=== PATIENT | female | born 1955 | race Caucasian/White ===

== ENCOUNTER → 2017-12-01 | Outpatient (CLI) | payer OTHER ==
[~2017-12-01] MED LIST: Aspir-Trin325 MG; CALCAVITD; CHOL10002; Daily Multiple1 EACH; IBUP800; LEVSOD75; LIOT25; PROG100; Sudogest30 MG; TURMERIC500 MG; Vivelle-Dot1 EAC1
== END | disposition home or self-care (01) ==
LOC: LAB SHORT 16:51 → OLS 16:51
DX: N89.8 Other specified noninflammatory disorders of vagina (principal)
CPT/HCPCS: 87070; 87205

== ENCOUNTER → 2018-01-27 | Outpatient (CLI) | payer OTHER | LOC: OLS 17:09 → LAB SHORT 17:09 | PROVIDERS: Obstetrics & Gynecology Gynecology | DX: Z12.4 Encounter for screening for malignant neoplasm of cervix (principal) | CPT/HCPCS: 87624; G0123 ==

== ENCOUNTER → 2018-02-10 | Outpatient (CLI) | payer OTHER | LOC: LAB SHORT 07:29 → PLD 07:29 | DX: N95.0 Postmenopausal bleeding (principal) | CPT/HCPCS: 88305 ==

== ENCOUNTER → 2018-09-27 | Outpatient (CLI) | payer OTHER ==
[~2018-09-27] MED LIST changes: +ASPI325EC PO; +ESTRADIOL1 EAC2 TD; +IBUP800 PO; +LIOT50 PO; +Multivitamin1 EAC1 PO; +PROG100 PO; +Super Calcium600 MG PO; +Synthroid88 MCG PO; +VITAMIN D31000 UNIT PO
[2018-09-27 19:37] LABS: Free Thyroxine 0.88 ng/dL (0.70-1.60)
[2018-09-27 19:39] LABS: Thyroid Stimulating Hormone <0.005 uIU/mL (0.360-4.800); Triiodothyronine, Free 4.39 pg/mL (2.18-3.98)
== END ==
LOC: LAB 17:18 → LAB SHORT 17:18
PROVIDERS: Hospitalist
DX: E03.9 Hypothyroidism, unspecified (principal); R30.0 Dysuria
CPT/HCPCS: 84439; 84443; 84481; 87077; 87086; 87186

== ENCOUNTER → 2019-03-23 | Outpatient (CLI) | payer OTHER ==
[~2019-03-23] MED LIST changes: +LIOT25 PO
[2019-03-25 15:07] LABS: HPV 16 Negative (Negative); HPV 18 Negative (Negative); HPV OTHER HR TYPES Negative (Negative)
== END | disposition home or self-care (01) ==
LOC: LAB SHORT 17:26 → LAB 17:26
PROVIDERS: Obstetrics & Gynecology Gynecology
DX: Z91.89 Other specified personal risk factors, not elsewhere classified (principal)
CPT/HCPCS: 87624; G0123

== ENCOUNTER 2019-04-12 13:41 | Day surgery (SDC) | payer OTHER ==
[~2019-04-12] VITALS: Ht 157.5 cm; Wt 44.9 kg
[~2019-04-12 13:41] MED LIST changes: -LIOT25 PO
--- NOTE | 2019-04-12 16:27 | NUR ---
04/12/19 1627 Alexandra Franklin PT STATES NO PAIN, JUST A LITTLE CRAMPING.
--- NOTE | 2019-04-12 16:49 | NUR ---
04/12/19 1649 Ann Bojorquez DEFICIT REPORTED BY MACHINE TO BE 330
[2019-05-10] MEDS ORDERED: LIOT25 PO (08:02)
== END 2019-04-12 16:50 | disposition home or self-care (01) ==
LOC: ORSCSDS 13:41
PROVIDERS: Obstetrics & Gynecology Gynecology
PROC: 0UDB8ZX Extraction of Endometrium, Via Natural or Artificial Opening Endoscopic, Diagnostic (ICD-10-PCS; principal; 2019-04-12 14:45)
PROC: 0UB98ZX Excision of Uterus, Via Natural or Artificial Opening Endoscopic, Diagnostic (ICD-10-PCS; principal; 2019-04-12 14:45)
DX: N95.0 Postmenopausal bleeding (principal); N84.0 Polyp of corpus uteri; E03.9 Hypothyroidism, unspecified; Z79.899 Other long term (current) drug therapy
CPT/HCPCS: 88305; J0690; J1100; J1885; J2250; J2310; J2405; J2704; J3010; J7120

== ENCOUNTER 2019-05-17 13:30 | Day surgery (SDC) | payer OTHER ==
[~2019-05-17] VITALS: Ht 157.5 cm; Wt 44.2 kg
[~2019-05-17 13:30] MED LIST changes: +LIOT25 PO
== END 2019-05-17 16:42 | disposition home or self-care (01) ==
LOC: ORSCSDS 13:30
PROVIDERS: Surgery
PROC: 0DJD8ZZ Inspection of Lower Intestinal Tract, Via Natural or Artificial Opening Endoscopic (ICD-10-PCS; principal; 2019-05-17 14:45)
DX: Z12.11 Encounter for screening for malignant neoplasm of colon (principal); E03.9 Hypothyroidism, unspecified; Z79.899 Other long term (current) drug therapy
CPT/HCPCS: J2704; J7120

== ENCOUNTER 2019-09-02 09:20 | Observation (INO) | payer MEDICARE, BC ==
[~2019-09-02] VITALS: Ht 160 cm; Wt 35.8 kg
[~2019-09-02 09:20] MED LIST changes: +ASPI81CH PO; +MORGIDOX100 MG PO; +Sudogest30 MG PO; +VIVELLE DOT TD
--- NOTE | 2019-09-02 09:42 | NUR ---
History, Chart, Medications and Allergies reviewed before start of procedure. Patient confirms NPO status and agrees with scheduled surgery. Lungs clear T/O to Auscultation. Patient States Post-Procedure ride home has been arranged. Pre-Op teaching done. Pt verbalizes understanding.
--- NOTE | 2019-09-02 10:16 | NUR ---
09/02/19 Flores Sullivan PATIENT CONFIRMS NPO STATUS AND AGREES WITH SCHEDULED PROCEDURE. History, Chart, Medications and Allergies reviewed before start of procedure. MONITOR INTACT WITH CONTINUOUS PULSE OXIMETRY AND INTERMITTENT BP. O2 VIA N/C INTACT THROUGHOUT SEDATION/PROCEDURE VIA POM MASK AT 10 L. 3-LEAD EKG REVIEWED WITH PHYSICIAN PRIOR TO START OF PROCEDURE. 2% LIDOCAINE JELLY WITH 5 DROPS SAMIRA-SYNEPHRINE 0.5% APPLIED TO BILATERAL NARES WITH COTTON TIP APPLICATOR. 2% LIDOCAINE SOLUTION SPRAYED TO OROPHARYNX USING ATOMIZATION DEVICE UNTIL GAG REFLEX GONE BY SARA HUMPHREY RN.
--- NOTE | 2019-09-02 11:53 | NUR ---
PATIENT STATES SHE FEELS SOB, BUT STATES IT IS CONSISTANT WITH HER BASELINE. BREATHING R/A. BIOX 94-95%. DENIES CHEST PAIN. 3-LEAD EKG INTACT. FREQUENT PVCs noted, but sedation nurse states this is consistant with pre-procedure EKG tracing. Patient was instructed by Dr. Ortiz to see a radio repairer as an outpatient and that her office would arrange the referral. Patient agrees wtih this plan.
--- NOTE | 2019-09-02 12:23 | NUR ---
NSR ON 3LEAD EKG. PVCs NO LONGER NOTED ON RHYTHM.
--- NOTE | 2019-09-02 12:29 | NUR ---
PATIENT TRANSPORTED TO RADIOLOGY VIA GURNEY FOR CXR.
--- NOTE | 2019-09-02 12:33 | NUR ---
PATIENT BACK TO DAY SURGERY VIA GURNEY TRANSPORT.
--- NOTE | 2019-09-02 13:13 | NUR ---
[address] CLAROS TO GIVE UPDATE ON PATIENT HEART RHYTHM AND VS. ORDER TO FINISH BAG OF LR THAT IS CURRENTLY HANGING FOR A TOTAL BOLUS OF 600ML. BOLUS STARTED. WILL CALL DR CLAROS AT [phone] CLAROS REQUEST.
--- NOTE | 2019-09-02 13:34 | NUR ---
PATIENT ADMITS TO SOME CHEST "PRESSURE", DENIES PAIN. STATES THIS HAS BEEN OCCURING FREQUENTLY. ALSO STATES SHE HAS HAD FATIGUE. PVCs occuring frequently again. Will notify Dr. Ortiz of patient status.
--- NOTE | 2019-09-02 14:00 | NUR ---
UP TO BR WITH STEADY GAIT. STAND BY ASSIST. PATIENT REPORTS FEELING A LITTLE DIZZY, BUT SAYS THIS IS NOT NEW FOR HER. DR CLAROS CONSULTING WITH HOSPITALIST FOR OBSERVATION ADMISSION. NURSING COVERING MACHINE OPERATOR NOTIFED OF ADMISSION NEED.
--- NOTE | 2019-09-02 14:15 | NUR ---
GAG REFLEX EVIDENT WITH TONGUE DEPRESSOR. TOLERATING PO WATER. AT BEDSIDE. REPORT TO MILAGRO RUIZ RN.
--- NOTE | 2019-09-02 15:15 | NUR ---
PT TO BE TRANSFERRED TO PCU [address] HOWE. GAVE REPORT TO LUL PAULSON RN. PT REMAINED CP AND PRESSURE FREE. NO CHANGE IN RESPIRATORY STATUS SINCE ASSUMED CARE. ALL BELONINGS SENT WITH PATIENT. PT CONTINUES TO SIP ICE WATER, TWO CRACKERS EATEN FOR ACIDIC STOMACH. AT BEDSIDE AT TIME OF TRANSFER.
[2019-09-02 16:14] LABS: BASOPHILS ABSOLUTE AUTO 0.03 K/mm3 (0.00-0.23); BASOPHILS PERCENT AUTO 1 % (0-2); EOSINOPHILS ABSOLUTE AUTO 0.08 K/mm3 (0.00-0.68); EOSINOPHILS PERCENT AUTO 1 % (0-6); Hematocrit 39.4 % (33.0-51.0); Hemoglobin 12.8 g/dL (11.5-16.0); IMMATURE GRAN ABSOLUTE AUTO 0.01 K/mm3 (0.00-0.10); IMMATURE GRAN PERCENT AUTO 0 % (0-1); LYMPHOCYTES ABSOLUTE AUTO 1.41 K/mm3 (0.84-5.20); LYMPHOCYTES PERCENT AUTO 24 % (21-46); MONOCYTES ABSOLUTE AUTO 0.55 K/mm3 (0.16-1.47); MONOCYTES PERCENT AUTO 9 % (4-13); Mean Corpuscular HGB 29.6 pg (26.0-34.0); Mean Corpuscular HGB Conc 32.5 g/dL (31.5-36.5); Mean Corpuscular Volume 91 fL (80-100); NEUTROPHILS ABSOLUTE AUTO 3.82 K/mm3 (1.96-9.15); NEUTROPHILS PERCENT AUTO 65 % (41-73); Platelet Count 121 K/mm3 (150-400); RDW Coefficient Variation 12.3 % (11.7-14.2); RDW Standard Deviation 40.7 fL (35.1-46.3); Red Blood Cell Count 4.33 M/mm3 (3.80-5.20)
[2019-09-02 16:33] LABS: Alanine Aminotransfer (ALT/SGP 20 U/L (12-78); Albumin, Blood 3.1 g/dL (3.4-5.0); Alk Phos 41 U/L (50-136); Anion Gap 4 mmol/L (6-16); Aspartate Aminotrans (AST/SGOT 18 U/L (12-37); Bilirubin, Total 0.6 mg/dL (0.1-1.0); Blood Urea Nitrogen 14 mg/dL (8-24); Bun/Creatinine Ratio 19.3 (12.0-20.0); CO2, Blood 26 mmol/L (21-32); Calcium, Blood 8.5 mg/dL (8.5-10.1); Chloride, Blood 110 mmol/L (98-108); Creatinine, Blood 0.73 mg/dL (0.40-1.00); Glomerular Filtration Rate >60 (60-); Glucose, Blood 123 mg/dL (70-99); Phosphorus, Blood 2.7 mg/dL (2.5-4.9); Potassium, Blood 4.1 mmol/L (3.5-5.5); Sodium, Blood 140 mmol/L (136-145); Total Protein, Blood 6.1 g/dL (6.4-8.2); Troponin I <0.015 ng/mL (0.000-0.040)
[2019-09-02 18:03] LABS: Magnesium, Blood 2.1 mg/dL (1.6-2.4)
[2019-09-02 18:04] LABS: Thyroid Stimulating Hormone <0.005 uIU/mL (0.360-4.800)
--- NOTE | 2019-09-02 18:27 | NUR ---
SHIFT SUMMARY PT ARRIVED FROM PACU THIS AFTERNOON AFTER HAVING HYPOTENSION AND FREQUENT PVC'S DURING THE PROCEDURE. PT WAS AND HAS REMAINED NORMOTENSIVE SINCE ARRIVAL. TELEMETRY HAS SHOWN PT TO BE NSR WITH FREQ MULTI FOCAL PVC'S. NO HEART PALPITATIONS OR CP IS FELT BY PT. CARDIOLOGY WAS CONSULTED AND SAW PT. ORDERS FOR ECHO, STRESS TEST AND EKG FOR 09/03 RECEIVED. LUNGS SOUNDS ARE CLEAR AND DIM IN THE BASES ON ROOM AIR. PT HAS BEEN AWAKE AND VISITING WITH FAMILY AND DECLINES ANY NEEDS OR CONCERNS. UPDATED PT ON PLAN OF CARE AND PT STATES UNDERSTANDING.
--- NOTE | 2019-09-02 21:01 | NUR ---
ASSUMED CARE APPROXIMATELY 1900; PT A&O; SITTING UP IN BED; ANSWERS APPROPRIATELY; O2 SATS >94 ON RA; LUNG SOUNDS DIM IN BASES; NO COUGH NOTED; NO EDEMA PRESENT; PT IN NSR W/ PVC AND HR IN 80'S; DENIES CHEST PAIN; DENIES NEEDS AT THIS TIME; CALL LIGHT IN REACH; BED IN LOWEST POSITION
[2019-09-03 06:06] LABS: BASOPHILS ABSOLUTE AUTO 0.02 K/mm3 (0.00-0.23); BASOPHILS PERCENT AUTO 0 % (0-2); EOSINOPHILS ABSOLUTE AUTO 0.19 K/mm3 (0.00-0.68); EOSINOPHILS PERCENT AUTO 4 % (0-6); Hematocrit 42.8 % (33.0-51.0); Hemoglobin 13.8 g/dL (11.5-16.0); IMMATURE GRAN ABSOLUTE AUTO 0.01 K/mm3 (0.00-0.10); IMMATURE GRAN PERCENT AUTO 0 % (0-1); LYMPHOCYTES ABSOLUTE AUTO 1.32 K/mm3 (0.84-5.20); LYMPHOCYTES PERCENT AUTO 28 % (21-46); MONOCYTES ABSOLUTE AUTO 0.67 K/mm3 (0.16-1.47); MONOCYTES PERCENT AUTO 14 % (4-13); Mean Corpuscular HGB 29.2 pg (26.0-34.0); Mean Corpuscular HGB Conc 32.2 g/dL (31.5-36.5); Mean Corpuscular Volume 91 fL (80-100); Mean Platelet Volume 11.9 fL (9.1-12.4); NEUTROPHILS PERCENT AUTO 53 % (41-73); Platelet Count 115 K/mm3 (150-400); RDW Coefficient Variation 12.1 % (11.7-14.2); RDW Standard Deviation 40.2 fL (35.1-46.3); Red Blood Cell Count 4.72 M/mm3 (3.80-5.20); White Blood Cell Count 4.71 K/mm3 (4.00-11.30)
--- NOTE | 2019-09-03 06:14 | NUR ---
SHIFT SUMMARY PT SLEPT ON AND OFF THROUGH NIGHT; HAD SPELL OF NAUSEA; REFUSED ZOFRAN; DIET KAROL MIST AND CRACKERS WERE BROUGHT TO PT; SHE STATED LATER THAT IT HELPED; ECG AT BEDSIDE APPROXIMATELY 0405; PT DENIES CHEST PAIN; DENIES NEEDS; CALL LIGHT IN REACH; BED IN LOWEST POSITION; WILL CONTINUE TO MONITOR CLOSELY UNTIL HAND OFF TO DAY SHIFT RN.
[2019-09-03 06:26] LABS: Anion Gap 5 mmol/L (6-16); Blood Urea Nitrogen 14 mg/dL (8-24); Bun/Creatinine Ratio 19.1 (12.0-20.0); CO2, Blood 25 mmol/L (21-32); Calcium, Blood 8.5 mg/dL (8.5-10.1); Chloride, Blood 112 mmol/L (98-108); Creatinine, Blood 0.73 mg/dL (0.40-1.00); Glomerular Filtration Rate >60 (60-); Glucose, Blood 81 mg/dL (70-99); Potassium, Blood 4.2 mmol/L (3.5-5.5); Sodium, Blood 142 mmol/L (136-145); Troponin I <0.015 ng/mL (0.000-0.040)
--- NOTE | 2019-09-03 12:59 | NUR ---
ECHOCARDIOGRAM COMPLETE
[2019-09-03 17:38] LABS: Free Thyroxine 0.82 ng/dL (0.70-1.60)
[2019-09-03 17:39] LABS: Triiodothyronine, Free 2.26 pg/mL (2.18-3.98)
--- NOTE | 2019-09-03 20:18 | NUR ---
SHIFT SUMMARY NO ACUTE CHANGES THROUGH THE DAY. PT REMAINS A&O X4. STRESS TEST WAS COMPLETED TODAY WITH NO PROBLEMS. PT DENIES CP AND STATE STAT SHE IS UNSURE "WHY SHE IS HERE FOR HER HEART WHEN IT IS HER LUNG'S ARE CAUSING THE PROBLEM" PT FDUCATION PROVIDED. PT DENIES SOB. PT'S IS AT THE BEDSIDE. REPORT GIVEN TO TAE HARPER.
[2019-09-04 04:32] LABS: Albumin, Blood 3.3 g/dL (3.4-5.0); Anion Gap 6 mmol/L (6-16); Blood Urea Nitrogen 14 mg/dL (8-24); Bun/Creatinine Ratio 20.2 (12.0-20.0); CO2, Blood 25 mmol/L (21-32); Calcium, Blood 8.6 mg/dL (8.5-10.1); Chloride, Blood 111 mmol/L (98-108); Creatinine, Blood 0.69 mg/dL (0.40-1.00); Glomerular Filtration Rate >60 (60-); Glucose, Blood 82 mg/dL (70-99); Phosphorus, Blood 2.9 mg/dL (2.5-4.9); Potassium, Blood 4.2 mmol/L (3.5-5.5); Sodium, Blood 142 mmol/L (136-145)
--- NOTE | 2019-09-04 06:40 | NUR ---
SHIFT SUMMARY PT A&O; VERY PLEASANT AND COMPLIANT W/ CARE; PT HAD SEVERAL FAMILY MEMBERS AT BEDSIDE AT START OF SHIFT; VSS; LUNG SOUNDS DIM IN BASES; O2 SATS >93 ON RA; PT INDEPENDENT IN ROOM; PT ANXIOUS APPROXIMATELY 2300 AND STATES SHE WORRIES; PT ENCOURAGED OF PROGRESS MADE; HOT TEA BROUGHT TO PT TO SOOTHE; AND TALKED FOR DISTRACTION W/ THIS RN; CALL LIGHT IN REACH; BED IN LOWEST POSITION; WILL CONTINUE TO MONITOR CLOSELY UNTIL HAND OFF TO DAY SHIFT RN.
[2019-09-04] MEDS ORDERED: METO25ER PO (10:47)
[2019-09-04] MEDS ORDERED: ATORVASTATIN CA10 MG PO (11:48)
[2019-09-04] MEDS ORDERED: ASPI81CH PO (11:51)
[2019-09-04] MEDS ORDERED: LEVO-T88 MCG PO (11:58)
[2019-09-13] MEDS ORDERED: Ativan0.5 MG PO (22:32)
== END 2019-09-04 12:14 | disposition home or self-care (01) ==
LOC: ORSCMMR 09:20 → PCU 15:23 → ORSCMMR 15:24 → PCU 15:24 → ORSCMMR 09-04 08:48 → PCU 09-04 08:49 → ORSCMMR 09-04 08:49 → PCU 09-04 12:14
PROVIDERS: Internal Medicine; Internal Medicine Cardiovascular Disease; Internal Medicine Endocrinology, Diabetes & Metabolism; ADMIT Internal Medicine Pulmonary Disease
PROC: 0B9D8ZX Drainage of Right Middle Lung Lobe, Via Natural or Artificial Opening Endoscopic, Diagnostic (ICD-10-PCS; principal; 2019-09-02 10:00)
PROC: 0B9J8ZX Drainage of Left Lower Lung Lobe, Via Natural or Artificial Opening Endoscopic, Diagnostic (ICD-10-PCS; principal; 2019-09-02 10:00)
DX: R05 Cough (principal); R07.89 Other chest pain; I49.3 Ventricular premature depolarization; R09.89 Other specified symptoms and signs involving the circulatory and respiratory systems; E03.9 Hypothyroidism, unspecified; E05.80 Other thyrotoxicosis without thyrotoxic crisis or storm; R91.8 Other nonspecific abnormal finding of lung field; M81.0 Age-related osteoporosis without current pathological fracture; I25.10 Atherosclerotic heart disease of native coronary artery without angina pectoris; R00.2 Palpitations; I10 Essential (primary) hypertension; R94.6 Abnormal results of thyroid function studies; R64 Cachexia; Z68.1 Body mass index [BMI] 19.9 or less, adult; Z79.890 Hormone replacement therapy; Z88.1 Allergy status to other antibiotic agents; Z88.5 Allergy status to narcotic agent; Z79.82 Long term (current) use of aspirin; Z79.899 Other long term (current) drug therapy
CPT/HCPCS: 36415; 71045; 78452; 80048; 80053; 80069; 83735; 84100; 84439; 84443; 84481; 84484; 85025; 87070; 87205; 93005; 93010; 93017; 93306; 96372; A9500; G0378; J0706; J1650; J2250; J2785; J3010; J7120

== ENCOUNTER → 2020-03-13 | Outpatient (CLI) | payer MEDICARE, BC ==
[~2020-03-13] MED LIST changes: +ATORVASTATIN CA10 MG PO; +Ativan0.5 MG PO; +LEVO-T88 MCG PO; +METO25ER PO
== END | disposition home or self-care (01) ==
LOC: LAB 14:45 → LAB SHORT 14:45
DX: N39.0 Urinary tract infection, site not specified (principal)
CPT/HCPCS: 87086

== ENCOUNTER → 2020-06-20 | Outpatient (CLI) | payer MEDICARE, BC | END | disposition home or self-care (01) | LOC: LAB SHORT 19:02 → LAB 19:02 | DX: N30.00 Acute cystitis without hematuria (principal) | CPT/HCPCS: 87077; 87086; 87186 ==

== ENCOUNTER → 2020-10-18 | Outpatient (CLI) | payer MEDICARE, BC | END | disposition home or self-care (01) | LOC: LAB SHORT 17:39 → PLD 17:39 | DX: I25.10 Atherosclerotic heart disease of native coronary artery without angina pectoris (principal) | CPT/HCPCS: 86141 ==

== ENCOUNTER → 2020-11-10 | Outpatient (CLI) | payer MEDICARE, BC | END | disposition home or self-care (01) | LOC: LAB SHORT 16:20 → LAB EV 16:20 | DX: N39.0 Urinary tract infection, site not specified (principal) | CPT/HCPCS: 87077; 87086; 87186 ==

== ENCOUNTER → 2021-04-24 | Outpatient (CLI) | payer MEDICARE, BC | LOC: LAB SHORT 10:00 → LAB 10:00 | DX: N30.00 Acute cystitis without hematuria (principal); Z88.1 Allergy status to other antibiotic agents; Z88.5 Allergy status to narcotic agent | CPT/HCPCS: 87077; 87086; 87186 ==

== ENCOUNTER 2022-01-21 06:19 | Day surgery (SDC) | payer MEDICARE, BC ==
[~2022-01-21] VITALS: Ht 157.5 cm; Wt 46.6 kg
--- NOTE | 2022-01-21 08:11 | NUR ---
01/21/22 0811 SHAMA ROMERO EPINEPHRINE 1MG ADDED TO 3 BAGS OF 1000ML FOR IRRIGATION.
--- NOTE | 2022-01-21 10:55 | NUR ---
01/21/22 1055 Saba Alba PRESENT FOR DC INSTRUCTIONS. DISCUSSED INSCENITIVE SPIROMETER AND PT DEMONSTRATED. ADJUSTED PTS SLING AND HELPED WTIH GETTING BRA ON PER PT REQUEST. NO QUESTIONS OR CONCERS FROM THE PT OR FAMILY. TMG
== END 2022-01-21 10:53 | disposition home or self-care (01) ==
LOC: ORSCSDS 06:19
PROVIDERS: Orthopaedic Surgery
PROC: 0LM24ZZ Reattachment of Left Shoulder Tendon, Percutaneous Endoscopic Approach (ICD-10-PCS; principal; 2022-01-21 07:30)
PROC: 0RNK4ZZ Release Left Shoulder Joint, Percutaneous Endoscopic Approach (ICD-10-PCS; principal; 2022-01-21 07:30)
PROC: 3E0U3GC Introduction of Other Therapeutic Substance into Joints, Percutaneous Approach (ICD-10-PCS; principal; 2022-01-21 07:30)
DX: M75.122 Complete rotator cuff tear or rupture of left shoulder, not specified as traumatic (principal); M75.22 Bicipital tendinitis, left shoulder; M75.42 Impingement syndrome of left shoulder; I10 Essential (primary) hypertension; E78.5 Hyperlipidemia, unspecified; E03.9 Hypothyroidism, unspecified; Z79.899 Other long term (current) drug therapy; Z79.82 Long term (current) use of aspirin
CPT/HCPCS: 29827; 29826; 0232T; C1713; J0171; J0690; J1100; J2250; J2370; J2405; J2704; J3010; J7120

== ENCOUNTER → 2022-09-08 | Outpatient (CLI) | payer MEDICARE, BC | END | disposition home or self-care (01) | LOC: LAB SHORT 14:30 → LAB 14:30 | DX: N30.01 Acute cystitis with hematuria (principal) | CPT/HCPCS: 87077; 87086; 87186 ==

== ENCOUNTER → 2022-12-03 | Outpatient (CLI) | payer MEDICARE, BC ==
[2022-12-05 14:11] LABS: SJOGREN'S ANTI-SS-A <0.2 AI (0.0-0.9); SJOGREN'S ANTI-SS-B <0.2 AI (0.0-0.9)
== END | disposition home or self-care (01) ==
LOC: LAB 14:35 → LAB SHORT 14:35
PROVIDERS: Hospitalist
DX: R68.2 Dry mouth, unspecified (principal)
CPT/HCPCS: 85651; 86430

== ENCOUNTER → 2023-03-05 | Outpatient (CLI) | payer MEDICARE, BC | LOC: LAB SHORT 18:20 → LAB 18:20 | DX: N39.0 Urinary tract infection, site not specified (principal) | CPT/HCPCS: 87077; 87086; 87186 ==

== ENCOUNTER → 2023-06-07 | Outpatient (CLI) | payer MEDICARE, BC | LOC: LAB SHORT 12:46 → LAB 12:46 | DX: N39.0 Urinary tract infection, site not specified (principal) | CPT/HCPCS: 87077; 87086; 87186 ==

== ENCOUNTER → 2023-06-20 | Outpatient (CLI) | payer MEDICARE, BC ==
[2023-06-20 12:51] LABS: BASOPHILS ABSOLUTE AUTO 0.02 K/mm3 (0.00-0.23); BASOPHILS PERCENT AUTO 0 % (0-2); EOSINOPHILS ABSOLUTE AUTO 0.01 K/mm3 (0.00-0.68); EOSINOPHILS PERCENT AUTO 0 % (0-6); Hematocrit 42.4 % (33.0-51.0); Hemoglobin 14.2 g/dL (11.5-16.0); IMMATURE GRAN ABSOLUTE AUTO 0.01 K/mm3 (0.00-0.10); IMMATURE GRAN PERCENT AUTO 0 % (0-1); LYMPHOCYTES ABSOLUTE AUTO 0.34 K/mm3 (0.84-5.20); LYMPHOCYTES PERCENT AUTO 7 % (21-46); MONOCYTES ABSOLUTE AUTO 0.98 K/mm3 (0.16-1.47); MONOCYTES PERCENT AUTO 19 % (4-13); Mean Corpuscular HGB 31.6 pg (26.0-34.0); Mean Corpuscular HGB Conc 33.5 g/dL (31.5-36.5); Mean Corpuscular Volume 94 fL (80-100); NEUTROPHILS ABSOLUTE AUTO 3.75 K/mm3 (1.96-9.15); NEUTROPHILS PERCENT AUTO 73 % (41-73); RDW Standard Deviation 44.7 fL (35.1-46.3); White Blood Cell Count 5.11 K/mm3 (4.00-11.30)
[2023-06-20 13:02] LABS: Albumin, Blood 4.2 g/dL (3.4-5.0); Albumin/Globulin Ratio 1.2 (0.8-1.8); Bilirubin, Total 0.4 mg/dL (0.1-1.0); Bun/Creatinine Ratio 11.8 (12.0-20.0); Calcium, Blood 8.7 mg/dL (8.5-10.1); Creatinine, Blood 1.1 mg/dL (0.40-1.00); Globulin, Blood 3.5 g/dL (2.2-4.0); Potassium, Blood 3.4 mmol/L (3.5-5.5); Total Protein, Blood 7.7 g/dL (6.4-8.2)
[2023-06-20 13:19] LABS: Mean Platelet Volume 10.6 fL (9.1-12.4); Platelet Count 112 K/mm3 (150-400)
== END ==
LOC: LAB SHORT 12:48 → LAB 12:48
PROVIDERS: Emergency Medicine
DX: R50.9 Fever, unspecified (principal)
CPT/HCPCS: 80053; 85025; 85651; 86140

== ENCOUNTER → 2023-07-27 | Outpatient (CLI) | payer MEDICARE, BC | END | disposition home or self-care (01) | LOC: LAB 18:40 → LAB SHORT 18:40 | DX: N39.0 Urinary tract infection, site not specified (principal) | CPT/HCPCS: 87077; 87086; 87186 ==

== ENCOUNTER → 2023-12-11 | Outpatient (CLI) | payer MEDICARE, BC | LOC: LAB 18:45 → LAB SHORT 18:45 | DX: N39.0 Urinary tract infection, site not specified (principal) | CPT/HCPCS: 87086 ==

== ENCOUNTER → 2024-03-16 | Outpatient (CLI) | payer MEDICARE, BC | END | disposition home or self-care (01) | LOC: LAB SHORT 07:28 → LAB 07:28 | DX: R93.89 Abnormal findings on diagnostic imaging of other specified body structures (principal) | CPT/HCPCS: 88305 ==

== ENCOUNTER 2024-08-16 11:12 | Emergency (ER) | payer MEDICARE, BC ==
[~2024-08-16] VITALS: Ht 157.5 cm; Wt 40.8 kg
[2024-08-16 11:52] LABS: Hematocrit 42.8 % (33.0-51.0); Hemoglobin 14.7 g/dL (11.5-16.0); Mean Corpuscular HGB 30.9 pg (26.0-34.0); Mean Corpuscular HGB Conc 34.3 g/dL (31.5-36.5); Mean Corpuscular Volume 90 fL (80-100); Mean Platelet Volume 11.1 fL (9.1-12.4); Platelet Count 105 K/mm3 (150-400); RDW Coefficient Variation 12.3 % (11.7-14.2); RDW Standard Deviation 41.1 fL (35.1-46.3); Red Blood Cell Count 4.75 M/mm3 (3.80-5.20); White Blood Cell Count 7.93 K/mm3 (4.00-11.30)
[2024-08-16 12:14] LABS: Albumin, Blood 3.3 g/dL (3.4-5.0); Albumin/Globulin Ratio 0.8 (0.8-1.8); Bilirubin, Total 0.7 mg/dL (0.1-1.0); Bun/Creatinine Ratio 21.2 (12.0-20.0); Calcium, Blood 9.2 mg/dL (8.5-10.1); Creatinine, Blood 1.13 mg/dL (0.40-1.00); Globulin, Blood 3.9 g/dL (2.2-4.0); Potassium, Blood 3.7 mmol/L (3.5-5.5); Total Protein, Blood 7.2 g/dL (6.4-8.2)
[2024-08-16] MEDS ORDERED: Benzonatate 100 MG Cap PO ONE (12:15)
[2024-08-16] MEDS ORDERED: NS 1,000 ML IV SCH (12:15)
[2024-08-16] MEDS ORDERED: Ketorolac Tromethamine 30mg Vial IV ONE (12:15)
[2024-08-16] MEDS ORDERED: Ondansetron HCl 2 MG / ML 2ML Vial IV ONE (12:15)
[2024-08-16 12:40] LABS: BAND PERCENT MAN 32 % (0-8); BASOPHILS PERCENT MAN 0 % (0-2); EOSINOPHILS PERCENT MAN 0 % (0-6); LYMPHOCYTES ABSOLUTE MAN 1.03 K/mm3 (0.84-5.20); LYMPHOCYTES PERCENT MAN 13 % (21-46); METAMYELOCYTE ABSOLUTE MAN 0.15 K/mm3 (0.00-0.00); METAMYELOCYTE PERCENT MAN 2 % (0-0); MONOCYTES ABSOLUTE MAN 0.31 K/mm3 (0.16-1.47); MONOCYTES PERCENT MAN 4 % (4-13); NEUTROPHILS ABSOLUTE MAN 6.42 K/mm3 (1.96-9.15); SEG NEUTROPHILS PERCENT MAN 49 % (41-73); TOTAL CELLS COUNTED 100
[2024-08-16] MEDS ORDERED: ONDA4ODT MM (15:27)
[2024-08-16] MEDS ORDERED: IBUP600 PO (15:27)
[2024-08-16 15:30] VITALS: BP 105/67
== END 2024-08-16 15:40 | disposition home or self-care (01) ==
LOC: ER 11:12
PROVIDERS: Physician Assistant
DX: B34.9 Viral infection, unspecified (principal); Z79.82 Long term (current) use of aspirin; Z79.899 Other long term (current) drug therapy; Z88.5 Allergy status to narcotic agent; Z88.1 Allergy status to other antibiotic agents; Z88.8 Allergy status to other drugs, medicaments and biological substances
CPT/HCPCS: 71046; 80053; 85025; 96361; 96374; 96375; 99283-25; A9270; J1885; J2405; J7030

== ENCOUNTER → 2024-11-05 | Outpatient (CLI) | payer MEDICARE, BC ==
[~2024-11-05] MED LIST changes: +IBUP600 PO; +ONDA4ODT MM
[2024-11-06 07:45] LABS: Bacterial Vaginosis PCR Negative (NEGATIVE); Candida Group, PCR NOT DETECTED (NOT DETECT); Candida glabrata-krusei, PCR NOT DETECTED (NOT DETECT)
== END ==
LOC: LAB 18:04 → LAB SHORT 18:04
PROVIDERS: Emergency Medicine
DX: N89.8 Other specified noninflammatory disorders of vagina (principal)
CPT/HCPCS: 81515